=== PATIENT | male | born 1975 | race Caucasian/White ===

== ENCOUNTER 2021-01-27 09:13 | Emergency (ER) | payer OTHER ==
--- NOTE | 2021-01-27 09:31 | EDM.PDOC ---
ED HPI GENERAL MEDICAL PROBLEM - General Stated Complaint: FALL Time Seen by Provider: 01/27/21 09:25 Source of Information: Reports: Patient History Limitations: Reports: No Limitations - History of Present Illness INITIAL COMMENTS - FREE TEXT/NARRATIVE: 46-year-old male who reports that he was walking across the parking lot of his apartment 6:45 AM today and there was ice and marquez on the pavement and he slipped on the ice and fell backward onto his back and struck his occiput on the pavement. There was no loss of consciousness. 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 He had no vomiting. There is no vision problems. I as a 4/10. It is a throbbing type headache. The pain in his neck is about the same and it is a sharp and "zinger" like pain. He has had no arm or leg weakness. No difficulty breathing. He presents to the emergency department via private vehicle with his father there are no other associated signs or symptoms. There are no other mod ifying factors. Onset: Today (6:45 AM) Duration: Getting Worse Location: Reports: Head, Neck, Back Quality: Reports: Sharp, Throbbing Severity: Moderate Improves with: Reports: Rest Worsens with: Reports: Other (Palpation), Movement Context: Reports: Trauma Associated Symptoms: Reports: No Other Symptoms (Except as above) Treatments SYSTEM DEVELOPMENT MANAGER: Reports: Other (see below) (Nothing) Posterior headache Pain Score (Numeric/FACES): 3 - Related Data Allergies Allergy/AdvReac Type Severity Reaction Status Date / Time Sulfa (Sulfonamide Allergy Rash Verified 01/27/21 09:24 Antibiotics) Home Meds: Home Meds Ondansetron [Zofran ODT] 4 mg PO Q6H PRN #8 tab.dis 01/27/21 [Rx] SUMAtriptan succinate [Imitrex] 50 mg PO ASDIRECTED 01/27/21 [History] Past Medical History Musculoskeletal History: Reports: Back Pain, Chronic Neurological History: Reports: Migraines - Past Surgical History HEENT Surgical History: Reports: Naso-Sinus Surgery, Oral Surgery ([place] teeth extraction), Tonsillectomy Musculoskeletal Surgical History: Reports: Other (See Below) (Bilateral ankle surgery) Social & Family History - Tobacco Use Tobacco Use Status *Q: Unknown Ever Used Tobacco (Nonsmoker) - Alcohol Use Alcohol Use History: No - Living Situation & Occupation Occupation: Employed (He is retired from the 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 Denies: Vomiting : Denies: Dysuria, Hematuria Musculoskeletal: Reports: Neck Pain, Back Pain (Left paraspinous pain) Skin: Denies: Rash, Wound Neurological: Reports: Headache. Denies: Trouble Speaking, Difficulty Walking Hematologic/Lymphatic: Denies: Easy Bleeding, Easy Bruising ED EXAM, HEAD INJURY - Physical Exam Exam: See Below Exam Limited By: No Limitations General Appearance: Alert, WD/WN, Mild Distress Head: Normocephalic, Scalp Swelling (Mild occipital swelling. No crepitus. No depression.) Nexus Criteria: Posterior, Midline Cervical Tenderness Eyes: Bilateral Eye: EOMI, Normal Inspection, PERRL Ears: Normal External Exam, Hearing Grossly Normal Nose: Normal Inspection, Normal Mucousa, No Blood Throat/Mouth: Normal Inspection, Normal Oropharynx, Normal Voice, No Airway Compromise Neck: Normal Inspection, Tenderness, Tender Midline Respiratory: No Respiratory Distress, Lungs Clear, Normal Breath Sounds, No Accessory Muscle Use, Chest Non-Tender Cardiovascular: Normal Peripheral Pulses, Regular Rate, Rhythm, No Murmur GI/Abdominal Exam: Normal Bowel Sounds, Soft, Non-Tender Back Exam: Normal Inspection, Paraspinal Tenderness. 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 II-XII nml As Tested, No Motor/Sensory Deficits, Alert, Normal Mood/Affect, Oriented x 3 Skin: Normal Color, Warm/Dry - [place] Coma Score Best Eye Response ([place]): (4) Open Spontaneously Best Verbal Response ([place]): (5) Oriented Best Motor Response ([place]): (6) Obeys Commands [place] Total: 15 Course - Vital Signs Last Recorded V/S: Last Vital Signs Temp 36.5 C 01/27/21 09:13 Pulse 66 01/27/21 09:13 Resp 18 01/27/21 09:13 BP 158/108 H 01/27/21 09:13 Pulse Ox 97 01/27/21 09:13 - Orders/Labs/Meds Orders: Active Orders 24 hr Category Date Time Status Cervical Spine wo Cont [CT] Stat Exams 01/27/21 09:39 Ordered Head wo Cont [CT] Stat Exams 01/27/21 09:39 Taken Meds: Medications Discontinued Medications Generic Name Dose Route Start Last Admin Trade Name Serge PRN Reason Stop Dose Admin Ondansetron HCl 4 mg 01/27/21 09:40 01/27/21 09:44 Ondansetron 4 Mg Tab.Dis PO 01/27/21 09:41 4 mg ONETIME ONE Administration - Radiology Interpretation Free Text/Narrative:: CT scan of the head was read as no acute disease per Dr. Mosquera. He called me with the report. CT scan of the cervical spine was read as no fracture. There were degenerative changes throughout the cervical spine. This was per Dr. Mosquera and he called me with the report. - Re-Assessments/Exams Free Text/Narrative Re-Assessment/Exam: 01/27/21 11:25: The CT scans of the head and cervical spine were negative per the radiologist. The patient is awake, alert and appropriate. He has remained neurologically and hemodynamically stable. He is having headache and some right posterior neck pain but he refused my offer for pain medication. His nausea has resolved. The patient will be discharged. At injury instructions will be given. I will also give a prescription for Zofran. He can take Tylenol or naproxen as needed for his pain. Precautions and reasons for return to the emergency department were discussed with the patient and with his father while the patient was in the emergency department and were detailed in the patient's discharge instructions. Departure - Departure Time of Disposition: 11:35 Disposition: Home, Self-Care 01 Condition: Good Clinical Impression: Head contusion Qualifiers: Encounter type: initial encounter Contusion of head detail: scalp Qualified Code(s): S00.03XA - Contusion of scalp, initial encounter Mild concussion Qualifiers: Encounter type: initial encounter Loss of consciousness presence/duration: without LOC Qualified Code(s): S06.0X0A - Concussion without loss of consciousness, initial encounter Cervical strain, acute Qualifiers: Encounter type: initial encounter Qualified Code(s): S16.1XXA - Strain of muscle, fascia and tendon at neck level, initial encounter Fall from slipping on ice Qualifiers: Encounter type: initial encounter Qualified Code(s): W00.9XXA - Unspecified fall due to ice and snow, initial encounter - Discharge Information Prescriptions: Ondansetron [Zofran ODT] 4 mg PO Q6H PRN #8 tab.dis PRN Reason: Nausea/Vomiting Instructions: Concussion, Adult, [id number], Facial or Scalp Contusion, [id number], Muscle Strain, [id number] Referrals: PCP,Not In Area [Primary Care Provider] - Forms: ED Return to Work/School Form Additional Instructions: The CT scans of your head and neck showed no evidence of fracture or bleeding. You did have degenerative changes in your neck. You appear to have had a mild concussion. You also appear to have a strain of your neck. You can take Tylenol and naproxen as needed for your pain. Medication as prescribed for nausea (Zofran 4 mg ODT). This prescription was sent electronically to your pharmacy. No work until tomorrow, 01/28/2021. Back to the emergency department for marked increase in pain, arm or leg weakness, unrelenting vomiting or any other concerning signs or symptoms. Sepsis Event Note (ED) - Focused Exam Vital Signs: Vital Signs Temp Pulse Resp BP Pulse Ox 01/27/21 09:13 36.5 C 66 18 158/108 H 97 - My Orders Last 24 Hours: My Active Orders 01/27/21 09:39 Cervical Spine wo Cont [CT] Stat Head wo Cont [CT] Stat - Assessment/Plan Last 24 Hours: My Active Orders 01/27/21 09:39 Cervical Spine wo Cont [CT] Stat Head wo Cont [CT] Stat
[2021-01-27] MEDS ORDERED: Ondansetron 4 MG Tab.DIS PO ONE (09:40)
--- NOTE | 2021-01-27 13:51 | CT ---
INDICATION: Fall with head injury and nausea. CT HEAD WITHOUT CONTRAST: Spiral 3.75 mm axial sections were obtained through the brain without contrast with axial, sagittal, and coronal reconstructions, 01/27/21 - no comparisons. TOTAL EXAM DLP: 1193.13 mGy/cm. The visualized paranasal sinuses showed evidence of thickening of the lining of the right frontal air cell, which could be on the basis of a chronic or allergic sinusitis of mild degree, Mastoid air cells were well aerated. No cranial fracture site was identified. No scalp hematoma was noted. The orbits appeared to be intact. No shift of midline structures, ventricular abnormalities or abnormal areas of density were identified - no bleeding site or hematoma was seen. No abnormal calcifications were seen. Espinoza-white matter interface appeared normal. IMPRESSION: No acute intracranial abnormality - normal CT brain without contrast. MTDD
--- NOTE | 2021-01-28 06:39 | CT ---
CT CERVICAL SPINE. INDICATION: Fall with head injury and neck pain. TECHNIQUE Spiral 2.5 mm axial sections were obtained through the cervical spine without contrast with axial and sagittal reconstructions, 01/27/21 - no comparisons. TOTAL EXAM DLP: 427.18 mGy/cm. FINDINGS The odontoid and atlas were intact, with mild hypertrophic degenerative changes at the odontoatlantian joint. Hypertrophic spurring is noted off the vertebral bodies posteriorly minimally at C3 and more prominently at C5, C6 and C7, as well as T1. Mild narrowing of the disc spaces is suggested at C4-5, C5-6 and C6-7. There are some mild hypertrophic changes anteriorly of vertebral bodies at C5-6 and minimally at C6-7 also. Hypertrophic changes are noted at the uncinate joints at all levels, but most prominently at C6-7 and C5-6. Vertebral body heights were well maintained. Vertebral elements appeared to be normally aligned, although there is some straightening of the normal cervical lordosis. There is some mild narrowing of neural foramina, especially in the mid to lower levels. Prevertebral space appeared to be normal. A definite acute fracture or dislocation was not seen. IMPRESSION Degenerative changes and disc disease, as noted above, with no acute fracture or dislocation identified. If symptoms persist - if occult fracture site is suspected clinically, nuclear bone imaging may be helpful for further evaluation. Report was called to Dr. Shultz at 1122 hours, 01/27/21. [facility]
== END 2021-01-27 12:12 | disposition home or self-care (01) ==
LOC: FB.ED 09:13
DX: S06.0X0A Concussion without loss of consciousness, initial encounter (principal); S16.1XXA Strain of muscle, fascia and tendon at neck level, initial encounter; S00.03XA Contusion of scalp, initial encounter; Z88.2 Allergy status to sulfonamides; W00.0XXA Fall on same level due to ice and snow, initial encounter
CPT/HCPCS: 70450; 72125; 99283; A9270